=== PATIENT | female | born 1995 | race Caucasian/White ===

== ENCOUNTER 2017-11-17 12:00 | Emergency (ER) | payer BC ==
[2017-11-17 12:44] VITALS: BP 130/71
--- NOTE | 2017-11-17 13:10 | UC ---
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 She tells me that she has a lot of sick contacts at work - many of whom have been dx'd with the flu. She has not taken anything for her symptoms. Denies fever, chills, SOB, chest pain, abdominal pain, n/v/d/c. - History of Current Complaint Chief Complaint: UCRespiratory Stated Complaint: CHILLS,HEADACHE Time Seen by Provider: 11/17/17 13:10 Hx Obtained From: Patient Hx Last Menstrual Period: 11/15/17 Onset/Duration: Sudden Onset Severity Currently: Mild Severity Initially: Mild Pain Intensity: 4 Pain Scale Used: 0-10 Numeric - Allergy/Home Medications Allergies/Adverse Reactions: Allergies Allergy/AdvReac Type Severity Reaction Status Date / Time No Known Allergies Allergy Verified 11/17/17 12:44 Home Medications: Home Medications NK [No Home Medications Reported] 11/17/17 [History Confirmed 11/17/17] PMH/Surg Hx/FS Hx/Imm Hx Previously Healthy: Yes - Surgical History Surgical History: Yes Surgery Procedure, Year, and Place: dental work - Family History Known Family History: Positive: Hypertension Negative: Cardiac Disease, Diabetes - Social History Occupation: Employed Full-time Lives: With Family Alcohol Use: Occasionally Substance Use Type: None Smoking Status (MU): Never Smoked Tobacco - Immunization History Most Recent Tetanus Shot: UTD Vaccination Up to Date: Yes Review of Systems Constitutional: Fatigue Skin: Negative Eyes: Negative ENT: Sore Throat Respiratory: Negative Cardiovascular: Negative Gastrointestinal: Negative Neurological: Negative Psychological: Negative All Other Systems Reviewed And Are Negative: Yes Physical Exam Triage Information Reviewed: Yes Appearance: Well-Appearing, No Pain Distress, Well-Nourished Vital Signs: Initial Vital Signs Temp 98.8 F 11/17/17 12:41 Pulse 69 11/17/17 12:41 Resp 18 11/17/17 12:41 BP 130/71 11/17/17 12:41 Pulse Ox 100 11/17/17 12:41 Vital Signs Reviewed: Yes Eyes: Positive: Conjunctiva Clear. Negative: Conjunctiva Inflamed, Discharge ENT: Positive: Hearing grossly normal, Pharynx normal, TMs normal, Uvula midline. Negative: Pharyngeal erythema, Nasal congestion, Nasal drainage, TM bulging, TM dull, TM red, Tonsillar swelling, Tonsillar exudate, Hoarse voice, Sinus tenderness Neck: Positive: Supple, Nontender, No Lymphadenopathy Respiratory: Positive: Lungs clear, Normal breath sounds, No respiratory distress, No accessory muscle use Cardiovascular: Positive: RRR, No Murmur, Pulses Normal Neurological: Positive: Alert Psychological: Positive: Age Appropriate Behavior Skin: Negative: rashes Flu Course/Dx - Course Course Of Treatment: POC flu negative. Advised to rest and drink fluids. - Differential Dx/Diagnosis Provider Diagnoses: Viral syndrome Discharge - Discharge Plan Condition: Stable Disposition: HOME Patient Education Materials: Viral Syndrome (ED) Forms: *Work Release Referrals: Ruthie Ivey [Primary Care Provider] - Additional Instructions: If you develop a fever, shortness of breath, chest pain, new or worsening symptoms - please call your PCP or go to the ED.
== END 2017-11-17 13:52 | disposition home or self-care (01) ==
LOC: UCEAST 12:00
DX: B34.9 Viral infection, unspecified (principal)
CPT/HCPCS: 87502; 99211; G0463

== ENCOUNTER 2017-12-03 13:30 | Emergency (ER) | payer BC ==
[2017-12-03 14:01] VITALS: BP 116/85
--- NOTE | 2017-12-03 14:03 | UC ---
Throat Pain/Nasal Joamr HPI - HPI Summary HPI Summary: Pt presents with worsening sinus pain/pressure/congestion, sore throat, headache , and fatigue. I saw her for similar symptoms almost 2 weeks ago and her flu was negative at that time. She has been taking ibuprofen for his discomfort with good relief. Has felt feverish, but has not taken her temperature. Denies chills, cough, SOB, chest pain, abdominal pain, v/d/c. - History of Current Complaint Chief Complaint: UCGeneralIllness Stated Complaint: COUGH,CHILLS Time Seen by Provider: 12/03/17 14:03 Hx Obtained From: Patient Hx Last Menstrual Period: 11/15/17 Onset/Duration: Gradual Onset Severity: Moderate Pain Intensity: 7 Pain Scale Used: 0-10 Numeric Cough: Nonproductive - Allergies/Home Medications Allergies/Adverse Reactions: Allergies Allergy/AdvReac Type Severity Reaction Status Date / Time No Known Allergies Allergy Verified 12/03/17 14:01 PMH/Surg Hx/FS Hx/Imm Hx Previously Healthy: Yes - Surgical History Surgical History: Yes Surgery Procedure, Year, and Place: dental work - Family History Known Family History: Positive: Hypertension Negative: Cardiac Disease, Diabetes - Social History Alcohol Use: Occasionally Substance Use Type: None Smoking Status (MU): Never Smoked Tobacco - Immunization History Most Recent Tetanus Shot: UTD Vaccination Up to Date: Yes Review of Systems Constitutional: Fatigue Skin: Negative Eyes: Negative ENT: Sore Throat, Nasal Discharge, Sinus Congestion, Sinus Pain/Tenderness Respiratory: Cough Cardiovascular: Negative Neurovascular: Negative Musculoskeletal: Negative Neurological: Headache Psychological: Negative All Other Systems Reviewed And Are Negative: Yes Physical Exam - Summary Physical Exam Summary: GENERAL: NAD. WDWN HEENT: NC/AT. Conjunctiva clear without inflammation or discharge. TMs intact , no bulging, erythema, or edema. Nasal mucosa mildly swollen and erythematous with clear discharge. TTP maxillary and frontal sinus. Posterior oropharynx with mild erythema. No exudates or tonsillar enlargement. Uvula midline. NECK: Supple without lymphadenopathy CHEST: CTAB. No r/r/w. No accessory muscle use. Breathing comfortably and in no distress. CV: RRR. Without m/r/g. Pulses intact. SKIN: No rash or erythema noted. NEURO: Alert. CN II-XII grossly intact. PSYCH: Age appropriate behavior. Triage Information Reviewed: Yes Vital Signs: Initial Vital Signs Temp 99.9 F 12/03/17 13:56 Pulse 87 12/03/17 13:56 Resp 20 12/03/17 13:56 BP 116/85 12/03/17 13:56 Pulse Ox 100 12/03/17 13:56 Throat Pain/Nasal Course/Dx - Course Course Of Treatment: Sinusitis. Pharyngitis - Differential Dx/Diagnosis Provider Diagnoses: Sinusitis. Pharyngitis Discharge - Discharge Plan Condition: Stable Disposition: HOME Prescriptions: Amoxicillin PO (*) [Amoxicillin 500 MG CAP*] 500 mg PO Q12H #20 cap Patient Education Materials: Pharyngitis (ED) Forms: *Work Release Referrals: Ruthie Ivey [Primary Care Provider] - Additional Instructions: If you develop a fever, shortness of breath, chest pain, new or worsening symptoms - please call your PCP or go to the ED.
== END 2017-12-03 14:17 | disposition home or self-care (01) ==
LOC: UCEAST 13:30
DX: J32.9 Chronic sinusitis, unspecified (principal); J02.9 Acute pharyngitis, unspecified
CPT/HCPCS: 99212; G0463